=== PATIENT | female | born 2000 | race Caucasian/White ===

== ENCOUNTER 2022-09-01 12:28 | Emergency (ER) | payer BC, SELFPAY ==
[2022-09-01 12:30] VITALS: BP 116/79; PULSE 105; RESP 18; RESP 20; TEMP 37.1; O2SAT 98; BMI 23.8
--- NOTE | 2022-09-01 12:46 | EXP.UTC ---
Discharge Plan Disposition Patient Disposition: Home, Self-Care Condition: Good Prescriptions Prescriptions: New clindamycin HCl 300 mg capsule 300 mg PO Q8H Qty: 30 0RF ibuprofen [ibuprofen] 600 mg tablet 600 mg PO Q6HP PRN (Reason: Mild Pain) Qty: 30 0RF fluconazole [Diflucan] 150 mg tablet 150 mg PO ONCE Qty: 1 2RF Referrals Follow up/Referrals: Provider,Referral, MD [Primary Care Provider] - See instructions Activity Restrictions/Add. Instructions Additional Instructions/Restrictions: Drink plenty of fluids. Take ibuprofen for pain or fever. Take the medications as directed. Follow up with your dentist. GO TO THE ER FOR ANY WORSENING SYMPTOMS Clinical Impressions Clinical Impression: Pain, dental, Abscess, dental Instructions Patient Instructions: Tooth Abscess, DI for Tooth Abscess Discharge ED Provider: Rai Minor [facility] General Stated complaint: Facial swelling from tooth Mode of Arrival: Ambulatory Source of Information: Patient Limitations: No Limitations Time Seen by Provider: 09/01/22 12:46 Description of Symptoms (Recalled from Triage Doc. by RN): PATIENT C/O TOOTHACHE TO RIGHT TOP SIDE WITH SWELLING X 2 DAYS HEENT Symptoms (Recalled from RN notes): Yes Resp Symptoms (Recalled from RN notes): No Skin Symptoms (Recalled from RN notes): No MS Symptoms (Recalled from RN notes): No Functional Status (Recalled from RN notes): WNL History of Present Illness Provider Complaint: She states that she has had dental pain for the past 1 week. She has a tooth in her left upper jaw that has swelling and redness around it. She has an appointment with her dentist, but she cannot be seen until next week. Related Data Previous Rx's Medication Instructions Recorded clindamycin HCl 300 mg capsule 300 mg PO Q8H #30 caps 09/01/22 fluconazole 150 mg tablet 150 mg PO ONCE #1 tab 09/01/22 (Diflucan) ibuprofen 600 mg tablet 600 mg PO Q6HP PRN Mild Pain #30 09/01/22 tabs Allergies Allergy/AdvReac Type Severity Reaction Status Date / Time amoxicillin Allergy Verified 09/01/22 12:55 Worker's Comp Is this a Worker's Comp case?: No [facility] Medical History No significant past medical history Social History Smoking Status: Current every day smoker tobacco type: cigarettes alcohol intake: never current occupational status: other Travel in the last 8 weeks: None ROS Obtained: Yes All systems reviewed & no additional complaints except as documented Constitutional Constitutional: Denies chills and Denies fever(s) Eyes Eyes: Denies eye discharge ENT Ears, Nose, Mouth, and Throat: Reports system reviewed and no additional complaints, except as documented, Denies dizziness, Denies otalgia and Denies sore throat Cardiovascular Cardiovascular: Denies chest pain Respiratory Respiratory: Denies shortness of breath, Denies chest congestion, Denies cough, Denies stridor and Denies wheezing Gastrointestinal Gastrointestingal: Denies nausea or vomiting Musculoskeletal Musculoskeletal: Reports system reviewed and no additional complaints, except as documented and Denies arthralgias Integumentary/Breasts Skin/Breast: Denies rash Neurologic Neurologic: Denies dizziness and Denies paresthesias Allergic/Immunologic Allergic/Immunologic: Denies wheezing Physical Exam General General appearance: alert and in no apparent distress Head Head exam: atraumatic, normocephalic and normal inspection Eye Eye exam: Present normal appearance, PERRL and EOMI ENT ENT exam: Present mucous membranes moist, TM's normal bilaterally and normal external ear exam Expanded ENT Exam External ear exam: Present normal external inspection Nose exam: Absent sinus tenderness Nasal speculum exam: Bilateral: normal Teeth exam: Present dental caries, fractured tooth # and dental tenderness # Nec
[2022-09-01 13:32] VITALS: BP 116/79; PULSE 105; RESP 20; TEMP 37.1; O2SAT 98
== END 2022-09-01 13:36 | disposition home or self-care (01) ==
PROVIDERS: Emergency Provider Nurse Practitioner Family
DX: K04.7 Periapical abscess without sinus (principal)
CPT/HCPCS: 99212; G0463